=== PATIENT | female | born 1975 | race Caucasian/White ===

== ENCOUNTER 2024-09-23 13:45 | Emergency (ER) | payer BC ==
[~2024-09-23] VITALS: Ht 170.2 cm; Wt 104.5 kg
[2024-09-23 14:01] VITALS: BP 161/77; PULSE 107; TEMP 97.2; O2SAT 98
[2024-09-23] MEDS ORDERED: NAPR-996 PO (15:18)
[2024-09-23 15:40] VITALS: RESP 16
[2024-09-23] MEDS: ketorolac trometh 15mg/ml vial 15 MG/ML ML IM ONE (15:40)
[2024-09-23] MEDS ORDERED: HYDR-3965 PO (15:48)
== END 2024-09-23 16:17 | disposition home or self-care (01) ==
LOC: ER 13:46
DX: M17.12 Unilateral primary osteoarthritis, left knee (principal); Z79.899 Other long term (current) drug therapy
CPT/HCPCS: 73564; 96372; 99283; J1885